=== PATIENT | male | born 1945 | race Caucasian/White ===

== ENCOUNTER → 2017-10-07 | Outpatient (CLI) | payer MEDICARE, OTHER ==
[~2017-10-07] MED LIST: ACET-822 PO; ASPI-183 PO; ASPI81 PO; CALCTAB33 PO; CARV12.5 PO; CLOP75 PO; CORE25TA PO; FENO134C PO; FENO50TA PO; FURO40TA PO; KLOR20TA3 PO; LASI20TA PO; LECIGRA PO; LOSA50TA PO; LYSI1000 P-ARTICULR; MAGN400T2 PO; MULT-65 PO; NALT50TA3 PO; OXYC1CAP PO; POTA-243 PO; RAMI5CAP7 PO; ROSU40 PO; TEMA15CA PO; TEST200I12 IM; VITA-141 PO; VITA400C70 PO; ZOCO80TA PO; [UNRECOGNIZED DRUG - CODE] PO; lecithin
[2017-10-07 11:43] LABS: AUTOMATED NEUTROPHIL # 3.7 TH/MM3 (1.8-7.7); BASOPHIL % 0.6 % (0.0-2.0); EOSINOPHIL # 0.8 TH/MM3 (0-0.4); EOSINOPHIL % 10.1 % (0.0-4.0); HEMATOCRIT 39.9 % (39.0-51.0); HEMOGLOBIN 13.5 GM/DL (13.0-17.0); LYMPH % 31.3 % (9.0-44.0); LYMPHOCYTE # 2.5 TH/MM3 (1.0-4.8); MEAN CORPUSCULAR HEMOGLOBIN 31.4 PG (27.0-34.0); MEAN CORPUSCULAR HGB CONC 33.8 % (32.0-36.0); MEAN PLATELET VOLUME 9.3 FL (7.0-11.0); MONO % 10.7 % (0.0-8.0); MONOCYTE # 0.8 TH/MM3 (0-0.9); NEUT % 47.3 % (16.0-70.0); PLATELET COUNT 201 TH/MM3 (150-450); RED BLOOD COUNT 4.29 MIL/MM3 (4.50-5.90); RED CELL DISTRIBUTION WIDTH 13.9 % (11.6-17.2); WHITE BLOOD COUNT 7.9 TH/MM3 (4.0-11.0)
[2017-10-07 11:43] LABS: BILIRUBIN, URINE NEG (NEG); BLOOD, URINE NEG (NEG); GLUCOSE,URINE NEG (NEG); HYALINE CAST, URINE 28 /lpf (RARE); KETONE, URINE NEG (NEG); MUCUS URINE FEW /lpf (OCC); NITRITE,URINE NEG (NEG); SQUAMOUS EPITHELIAL CELL URINE <1 /hpf (0-5); URINE COLOR YELLOW (YELLW/STRAW); URINE LEUKOCYTE ESTERASE NEG (NEG)
[2017-10-07 11:54] LABS: INTERNATIONAL NORMALIZED RATIO 1.1 RATIO; PROTHROMBIN TIME - PATIENT 10.8 SEC (9.8-11.6)
--- NOTE | 2017-10-07 11:56 | RADRPT ---
EXAM DATE/TIME: 10/07/2017 11:43 [place] COMPARISON: No previous studies available for comparison. INDICATIONS : Evaluate for Pneumonia, Pneumothorax, and communicable diseases. Pre-op Endovascular Aneurysm repair. MEDICAL HISTORY : None. SURGICAL HISTORY : CABG. Tonsillectomy. Triple bypass in 2006. ENCOUNTER: Initial ACUITY: 1 day PAIN SCORE: 0/10 LOCATION: Bilateral chest FINDINGS: There is evidence of prior median sternotomy CABG with borderline compensated cardiomegaly and athero sclerotic changes of the aorta. Vascularity is distinct. There is no consolidating infiltrate. There is a 5 or 6 mm faint rounded soft tissue density in the right lung base laterally near the costophren ic angle on PA view. Pulmonary nodule not excludable. CONCLUSION: Prior median sternotomy CABG with compensated atherosclerotic cardiovascular disease 5 or 6 mm rounded soft tissue density PA view only left base and costophrenic angle. Pulmonary nodule to be excluded. This could be performed with CT scan of the chest Travon De La Rosa MD on October 07, 2017 at 11:52 Board Certified Radiologist. This report was verified electronically.
[2017-10-07 12:15] LABS: BICARBONATE 27.7 MEQ/L (21.0-32.0); CALCIUM 8.6 MG/DL (8.5-10.1); CREATININE 1.29 MG/DL (0.60-1.30)
--- NOTE | 2017-10-08 00:12 | EKG ---
Date Performed: 10/07/2017 Time Performed: 10:55:14 PTAGE: 72 years EKG: Sinus bradycardia. Anterolateral T wave changes are nonspecific Borderline ECG PREVIOUS TRACING : 04/30/2008 11.46 Since the prior tracing, there has been no significant pineda DOCTOR: Ramos Padilla Interpretating Date/Time 10/08/2017 00:10:34
== END ==
LOC: CPRE 10:33
PROVIDERS: ATTEND Surgery
DX: Z01.812 Encounter for preprocedural laboratory examination (principal); Z01.810 Encounter for preprocedural cardiovascular examination; Z01.811 Encounter for preprocedural respiratory examination; I71.4 Abdominal aortic aneurysm, without rupture
CPT/HCPCS: 36415; 71046; 80048; 81001; 85025; 85610; 85730; 93005

== ENCOUNTER 2017-10-13 06:50 | Inpatient (IN) | payer MEDICARE, OTHER ==
[~2017-10-13] VITALS: Ht 177.8 cm; Wt 112.0 kg
[2017-10-13] VITALS (8 sets, daily range): BP systolic 132–140; BP diastolic 63–64; PULSE 72–83; RESP 17–18; TEMP 98.2–98.4; O2SAT 94–95
[~2017-10-13 06:50] MED LIST changes: -ACET-822 PO; -ASPI81 PO; -CARV12.5 PO; -CLOP75 PO; -FENO50TA PO; -LASI20TA PO; -LECIGRA PO; -OXYC1CAP PO; -POTA-243 PO; -RAMI5CAP7 PO; -TEMA15CA PO; -VITA400C70 PO; -ZOCO80TA PO; -lecithin
[2017-10-13] MEDS ORDERED: SODIUM CHLORID 0.9% 500 ML IV PRN (07:15)
[2017-10-13] MEDS ORDERED: CHLORHEXIDINE GLUCONATE 2 % 1 PACK (2 CLOTHS) TOPICAL PRN (07:15)
[2017-10-13] MEDS ORDERED: POVIDONE IODINE 5% (ANTISEPSIS KIT) 4 APPLICATIONS EACH NARE PRN (07:15)
[2017-10-13] MEDS ORDERED: METOPROLOL TARTRATE 25 MG TAB PO PRN (07:15)
[2017-10-13] MEDS ORDERED: LACTATED RINGER'S 1000 ML IV PRN (07:15)
[2017-10-13] MEDS ORDERED: TEMA15CA PO (07:58)
[2017-10-13] MEDS ORDERED: ACET-822 PO (07:58)
[2017-10-13] MEDS ORDERED: PROTAMINE SULFATE 50 MG/5 ML VIAL ONE ×2 (08:00→10:09)
[2017-10-13] MEDS ORDERED: THROMBIN (TOPICAL) 20,000 UNIT SPRAY KIT ONE (08:01)
[2017-10-13] MEDS ORDERED: BUPIVACAINE HCL PF 0.5% 30 ML VIAL ONE (08:01)
[2017-10-13] MEDS ORDERED: HEPARIN SODIUM - IV 10,000 UNITS/10 ML VIAL ONE ×2 (08:01→10:09)
[2017-10-13] MEDS ORDERED: ceFAZolin 2 GM PREMIX 50 ML ONE (08:02)
[2017-10-13] MEDS ORDERED: HEPARIN-NS/PF INJ 500 ML ONE (08:02)
--- NOTE | 2017-10-13 08:38 | PD.VS.PN ---
Pre-operative Note Pre-operative diagnosis: AAA Planned procedure: EVAR Interval History: Pt has been feeling well, no changes in health. Ready for surgery. Blood: none needed Orders: NPO Ancef 2g IV OCTOR Post-operative destination: PACU Operative site marked: Yes Consent: Informed consent has been obtained from Endy Guerrero Jr. I have explained the procedure in detail and discussed the risks, benefits, and potential complications. All questions have been answered. Patient contact information: [phone] () Naman Starkey MD Oct 13, 2017 08:38
[2017-10-13] MEDS ORDERED: IOHEXOL 300 MG/ML 100 ML BTL (for Rad CT) OTHER ONE (09:57)
[2017-10-13] MEDS ORDERED: ACETAMINOPHEN 1000 MG/100 ML 100 ML IV ONE (10:19)
[2017-10-13] MEDS ORDERED: SUGAMMADEX SODIUM 200 MG/2 ML VIAL IV PUSH ONE (11:02)
--- NOTE | 2017-10-13 11:18 | HHI.PR ---
cc: Loan Lujan MD Immediate Post Op Note Procedure Date: Oct 13, 2017 Pre Op Diagnosis: AAA Post Op Diagnosis: AAA Surgeon: Naman Starkey Flower Cutter(s): none Procedure: EVAR with 2 docking limbs Findings: small endoleak at end of case successful EVAR and B Percutaneous access Complications: none Specimen(s) removed: none Estimated blood loss: 50mL Anesthesia: General Drains: None Fluids: 1100mL IVF Urinary Output (mLs): 275 Patient to: PACU Patient Condition: Good Implant/Devices: SEE IMPLANT LOG (if applicable) Date/Time of Procedure: SEE SURGICAL CARE RECORD Naman Starkey MD Oct 13, 2017 11:18
[2017-10-13] MEDS ORDERED: MAGNESIUM HYDROXIDE SUSP 30 ML CUP PO PRN (11:30)
[2017-10-13] MEDS ORDERED: TEMAZEPAM 15 MG CAP PO PRN (11:30)
[2017-10-13] MEDS ORDERED: LACTULOSE SYRUP 20 GM/30 ML CUP PO PRN (11:30)
[2017-10-13] MEDS ORDERED: BISACODYL 10 MG SUPP RECTAL PRN (11:30)
[2017-10-13] MEDS ORDERED: SENNOSIDES 8.6 MG TAB PO PRN (11:30)
[2017-10-13] MEDS ORDERED: HYDROmorphone HCL 2 MG TAB PO PRN (11:30)
[2017-10-13] MEDS ORDERED: *RESP: ALBUTEROL 2.5 MG/3 ML NEB (PRN) PERIprocedural Use ONLY NEB ONE (11:56)
[2017-10-13] MEDS ORDERED: DO NOT ADM ANY ANTICOAGULANT DRUGS PRN (12:15)
[2017-10-13] MEDS: CARVEDILOL 12.5 MG TAB PO SCH (21:35)
[2017-10-13] MEDS: DOCUSATE SODIUM 50 MG/SENNA 8.6 MG TAB PO SCH (21:35)
[2017-10-13] MEDS: FAMOTIDINE 20 MG TAB PO SCH (21:35)
[2017-10-14] VITALS (8 sets, daily range): BP systolic 143–158; BP diastolic 67–68; PULSE 69–80; RESP 16–18; TEMP 98.3–98.4; O2SAT 95–97
[2017-10-14 04:21] LABS: HEMATOCRIT 36.8 % (39.0-51.0); HEMOGLOBIN 12.2 GM/DL (13.0-17.0); MEAN CELL VOLUME 92.1 FL (80.0-100.0); MEAN CORPUSCULAR HEMOGLOBIN 30.4 PG (27.0-34.0); MEAN PLATELET VOLUME 8.4 FL (7.0-11.0); PLATELET COUNT 205 TH/MM3 (150-450); WHITE BLOOD COUNT 15.8 TH/MM3 (4.0-11.0)
[2017-10-14 04:47] LABS: BICARBONATE 26.3 MEQ/L (21.0-32.0); CALCIUM 8.4 MG/DL (8.5-10.1); CREATININE 1.18 MG/DL (0.60-1.30)
--- NOTE | 2017-10-14 07:08 | PD.VS.PN ---
Subjective POD #: 1 Procedure(s): EVAR with B RETAIL SUPPORT SPECIALIST Perclose Subjective/Hospital Course doing well, pain controlled Morel just came out Objective Vitals/I&O Date Time Temp Pulse Resp B/P (MAP) Pulse Ox O2 Delivery O2 Flow Rate FiO2 10/14/17 06:24 74 10/14/17 05:17 69 10/14/17 04:11 72 10/14/17 03:25 77 10/14/17 03:25 98.3 75 16 143/67 (92) 97 10/14/17 02:26 78 10/14/17 01:17 78 10/14/17 00:25 75 10/13/17 23:32 75 10/13/17 23:15 98.2 74 17 140/63 (88) 94 10/13/17 22:00 76 10/13/17 21:15 81 10/13/17 20:35 76 10/13/17 19:30 98.4 79 18 132/64 (86) 95 10/13/17 19:20 83 10/13/17 15:00 72 10/13/17 12:45 71 15 139/65 (89) 96 Room Air 10/13/17 12:30 68 14 127/60 (82) 96 Room Air 10/13/17 12:15 68 16 122/61 (81) 98 Nasal Cannula 2 10/13/17 12:00 71 17 130/66 (87) 97 Nasal Cannula 2 10/13/17 11:45 69 20 126/64 (84) 97 Nasal Cannula 2 10/13/17 11:31 97.5 75 20 132/77 (95) 95 Nasal Cannula 2 10/13/17 08:07 98.3 78 20 100/46 (64) 94 10/14/17 10/14/17 10/14/17 07:00 15:00 23:00 Intake Total 450 ml Output Total 480 ml Balance -30 ml Exam: Resting comfortably Feeling well Groins soft and no hematomas feet warm Laboratory Laboratory Tests Test 10/14/17 04:05 White Blood Count 15.8 Red Blood Count 4.00 Hemoglobin 12.2 Hematocrit 36.8 Mean Corpuscular Volume 92.1 Mean Corpuscular Hemoglobin 30.4 Mean Corpuscular Hemoglobin Concent 33.0 Red Cell Distribution Width 14.0 Platelet Count 205 Mean Platelet Volume 8.4 Blood Urea Nitrogen 15 Creatinine 1.18 Random Glucose 129 Calcium Level 8.4 Sodium Level 137 Potassium Level 4.0 Chloride Level 104 Carbon Dioxide Level 26.3 Anion Gap 7 Estimat Glomerular Filtration Rate 61 Assessment and Plan Plan POD#1 s/p EVAR Looks great 1. Await voiding 2. D/C later today Discharge Planning today if voids Naman Starkey MD Oct 14, 2017 07:08
[2017-10-14] MEDS: CARVEDILOL 12.5 MG TAB PO SCH (08:52)
[2017-10-14] MEDS ORDERED: OXYC1CAP PO (08:53)
[2017-10-14] MEDS: FAMOTIDINE 20 MG TAB PO SCH (08:53)
[2017-10-14] MEDS: DOCUSATE SODIUM 50 MG/SENNA 8.6 MG TAB PO SCH (08:55)
[2017-10-14] MEDS ORDERED: LOSARTAN 50 MG TAB PO SCH (09:00)
[2017-10-14] MEDS ORDERED: NALTREXONE HCL 50 MG TAB PO SCH (09:00)
[2017-10-14] MEDS ORDERED: ATORVASTATIN 80 MG TAB PO SCH (09:00)
[2017-10-14] MEDS ORDERED: CHROMIUM PO SCH (09:00)
[2017-10-14] MEDS ORDERED: LYSINE HCL 1000 MG P-ARTICULR SCH (09:00)
[2017-10-14] MEDS ORDERED: MULTIVITAMIN TAB PO SCH (09:00)
[2017-10-14] MEDS ORDERED: CALCIUM/VITAMIN D 250 MG/125 U TAB PO SCH (09:00)
[2017-10-14] MEDS ORDERED: MAGNESIUM OXIDE 400 MG TAB PO SCH (09:00)
[2017-10-14] MEDS ORDERED: VITAMIN E 400 UNIT CAP PO SCH (09:00)
[2017-10-14] MEDS ORDERED: POTASSIUM CHLORIDE 20 MEQ CONTROLLED RELEASE TAB PO SCH (09:00)
[2017-10-14] MEDS ORDERED: [UNRECOGNIZED DRUG - OTHER] PO SCH (09:00)
[2017-10-14] MEDS ORDERED: CINNAMON PO SCH (09:00)
[2017-10-14] MEDS ORDERED: ALPHA LIPOIC ACID PO SCH (09:00)
[2017-10-14] MEDS ORDERED: ASPIRIN 325 MG TAB PO SCH (09:00)
[2017-10-14] MEDS ORDERED: FUROSEMIDE 40 MG TAB PO SCH (09:00)
[2017-10-14] MEDS ORDERED: FENOFIBRATE 145 MG TAB PO SCH (09:00)
--- NOTE | 2017-10-14 09:50 | PD.VS.DC ---
Discharge Summary Admission Date: Oct 13, 2017 at 06:50 Discharge Date: Oct 14, 2017 Admission Diagnosis: (1) AAA (abdominal aortic aneurysm) without rupture Discharge Diagnosis: (1) History of repair of aneurysm of abdominal aorta using endovascular stent graft ICD Codes: Z95.828 - Presence of other vascular implants and grafts (2) AAA (abdominal aortic aneurysm) without rupture ICD Codes: I71.4 - Abdominal aortic aneurysm, without rupture Brief History from admission Mr. Guerrero was dx w/ an infrarenal AAA several months ago. Pt reported he has been doing well and is w/o any complaints. Pt denied SOB abdominal/back/chest pain. Pt w/ a Hx of an AAA that has increased in size from 4.4 cm to 5.3 cm in 6m Procedure(s): EVAR with B EARLY CHILDHOOD SERVICES COORDINATOR Perclose Significant Findings GENERAL: A&OX3,NAD,GCS15 SKIN: Warm and dry. NECK: Supple, trachea midline. No JVD or lymphadenopathy. CARDIOVASCULAR: Regular rate and rhythm without murmurs, gallops, or rubs. RESPIRATORY: Breath sounds equal bilaterally. No accessory muscle use. GASTROINTESTINAL: Abdomen soft, non-tender, nondistended. Bilat groins soft w/o hematoma or swelling MUSCULOSKELETAL: No cyanosis, or edema. LE warm w/ motor intact Laboratory Tests Test 10/14/17 04:05 White Blood Count 15.8 TH/MM3 (4.0-11.0) Red Blood Count 4.00 MIL/MM3 (4.50-5.90) Hemoglobin 12.2 GM/DL (13.0-17.0) Hematocrit 36.8 % (39.0-51.0) Random Glucose 129 MG/DL (74-106) Calcium Level 8.4 MG/DL (8.5-10.1) Estimat Glomerular Filtration Rate 61 ML/MIN (>89) Hospital Course: Mr. Guerrero was dx w/ an infrarenal AAA several months ago. Pt reported he has been doing well and is w/o any complaints. Pt denied SOB abdominal/back/chest pain. Pt w/ a Hx of an AAA that has increased in size from 4.4 cm to 5.3 cm in 6m Pt S/P EVAR POD 1 Doing well Denied Abdominal/back pain Bilat groins soft w/o hematoma or swelling Pt clear for d/c Arranged f/u in 1M with a surveillance CTA A/P post op EVAR Allergies Coded Allergies Type Severity Reaction Last Updated Verified clopidogrel Allergy Severe HANDS AND FEET RED 10/13/17 Yes 10/12/17 10/12/17 10/13/17 10/13/17 10/14/17 10/14/17 06:00 18:00 06:00 18:00 06:00 18:00 Intake Total 1100 ml 450 ml 700 ml Output Total 435 ml 480 ml 300 ml Balance 665 ml -30 ml 400 ml Intake Oral 450 ml 700 ml Other 1100 ml Output Urine Total 385 ml 480 ml 300 ml Estimated Blood Loss 50 ml # Bowel Movements 0 Laboratory Tests Test 10/14/17 04:05 White Blood Count 15.8 TH/MM3 Red Blood Count 4.00 MIL/MM3 Hemoglobin 12.2 GM/DL Hematocrit 36.8 % Mean Corpuscular Volume 92.1 FL Mean Corpuscular Hemoglobin 30.4 PG Mean Corpuscular Hemoglobin Concent 33.0 % Red Cell Distribution Width 14.0 % Platelet Count 205 TH/MM3 Mean Platelet Volume 8.4 FL Blood Urea Nitrogen 15 MG/DL Creatinine 1.18 MG/DL Random Glucose 129 MG/DL Calcium Level 8.4 MG/DL Sodium Level 137 MEQ/L Potassium Level 4.0 MEQ/L Chloride Level 104 MEQ/L Carbon Dioxide Level 26.3 MEQ/L Anion Gap 7 MEQ/L Estimat Glomerular Filtration Rate 61 ML/MIN Orders Procedure Category Date Status Time Type And Screen BBK 10/13/17 Complete 07:06 Lactated Ringer's MED 10/13/17 Complete 1000 Ml Inj (Lr 1000 M 07:15 Sodium Chlorid 0.9% MED 10/13/17 Complete 500 Ml Inj (Ns 500 M 07:15 Metoprolol Tartrate MED 10/13/17 Complete (Lopressor) 07:15 Povidone Iod 5% MED 10/13/17 Complete Antisepsis Kit 07:15 Chlorhexidine 2% MED 10/13/17 Complete Cloth (Chlorhexidine 07:15 Protamine Sulfate Inj MED 10/13/17 Complete (Protamine Sulfate 08:00 Heparin Inj (Heparin MED 10/13/17 Complete Inj) 08:01 Bupivacaine Pf 0.5% MED 10/13/17 Complete Inj (Marcaine Pf 0.5 08:01 Thrombin Top [place] MED 10/13/17 Complete (Thrombin Top [place]) 08:01 Heparin-Ns/Pf Inj MED 10/13/17 Complete (Heparin-Ns/Pf Inj) 08:02 Cefazolin 2 Gm Premix MED 10/13/17 Complete (Ancef 2 Gm Premix 08:02 Endovascular Cath CATH 10/13/17 Logged Urinary Catheter MARSHAL 10/13/17 Complete Management 10:07 Protamine Sulfate Inj MED 10/13/17 Complete (Protamine Sulfate 10:09 Heparin Inj (Heparin MED 10/13/17 Complete Inj) 10:09 Acetaminophen 1000 MED 10/13/17 Complete Mg/100 Ml (Ofirmev 10 10:19 Sugammadex Inj MED 10/13/17 Complete ([place] Inj) 11:02 Iohexol 300 Inj (Rad MED 10/13/[address]) (Omnipaque 300 09:57 Admit To Inpatient ADMITTING 10/13/17 Transmitted Code Status CODE 10/13/17 Transmitted 11:18 Vital Signs (Adult) MARSHAL 10/13/17 Complete 11:18 Mirror Painter / MARSHAL 10/13/17 Complete Telemetry 11:18 Activity Oob Ad Glory MARSHAL 10/14/17 Complete 07:00 Activity Bed Rest MARSHAL 10/13/17 Complete 11:18 Precautions MARSHAL 10/13/17 Complete 11:18 Diet Heart Healthy DIET 10/13/17 Complete Lunch Basic Metabolic Panel LAB 10/14/17 Complete (Bmp) 06:00 Cbc No Diff, Includes LAB 10/14/17 Complete Plts 06:00 Aspirin (Aspirin) MED 10/14/17 Complete 09:00 Famotidine (Pepcid) MED 10/13/17 Complete 21:00 Oxycodone (Roxicodone) MED 10/13/17 Complete 11:30 Hydromorphone MED 10/13/17 Complete (Dilaudid) 11:30 Scd Bilateral/Knee MARSHAL 10/13/17 Complete High 11:18 Docusate Sodium-Senna MED 10/13/17 Complete (Katlin-Colace) 21:00 Magnesium Hydroxide MED 10/13/17 Complete Liq (Milk Of Magnesi 11:30 Sennosides (Senokot) MED 10/13/17 Complete 11:30 Bisacodyl Supp MED 10/13/17 Complete (Dulcolax Supp) 11:30 Lactulose Liq MED 10/13/17 Complete (Lactulose Liq) 11:30 Inpatient ADMITTING 10/13/17 Transmitted Certification Remove Urinary MARSHAL 10/14/17 Complete Catheter 07:00 Carvedilol (Coreg) MED 10/13/17 Complete 21:00 Furosemide (Lasix) MED 10/14/17 Complete 09:00 Losartan (Cozaar) MED 10/14/17 Complete 09:00 Magnesium Oxide MED 10/14/17 Complete (Mag-Ox) 09:00 Naltrexone Hcl (Revia) MED 10/14/17 Complete 09:00 Potassium Chloride MED 10/14/17 Complete (Kcl) 09:00 Temazepam (Restoril) MED 10/13/17 Complete 11:30 (Nf) Alpha Lipoic MED 10/14/17 Complete Lhnj-Wdpheffw-Qpdcgaaj 09:00 Calcium-Vit D 250-125 MED 10/14/17 Complete Mg (Oscal-D 250-12 09:00 Fenofibrate (Tricor) MED 10/14/17 Complete 09:00 (Nf) Lysine Hcl MED 10/14/17 Complete (Lysine) 09:00 Multivitamin MED 10/14/17 Complete (Theragran) 09:00 Atorvastatin (Lipitor) MED 10/14/17 Complete 09:00 Vitamin E (Vitamin E) MED 10/14/17 Complete 09:00 Enoxaparin Inj MED 10/14/17 Complete (Lovenox Inj) 11:00 *Albuterol Neb MED 10/13/17 Complete (*Albuterol Neb 11:56 [facility] MED 10/13/17 Complete Information 12:15 Class Iv Pacu Ea 30 [facility] 10/13/17 Complete MIN General/Pacu [facility] 10/13/17 Complete Post Anesthesia Oxygen [facility] 10/13/17 Complete Post Anesthesia [facility] 10/13/17 Complete Aerosol Am Admit Pre Op Care [facility] 10/13/17 Complete Haider Thakkar Med [facility] 10/13/17 Logged EA 17:29 Attending Discharge DISCHARGE 10/14/17 Transmitted Order Vital Signs Date Time Temp Pulse Resp B/P (MAP) Pulse Ox O2 Delivery O2 Flow Rate FiO2 10/14/17 08:00 80 10/14/17 08:00 98.4 79 18 158/68 (98) 95 10/14/17 07:16 18 10/14/17 06:24 74 10/14/17 05:17 69 10/14/17 04:11 72 10/14/17 03:25 77 10/14/17 03:25 98.3 75 16 143/67 (92) 97 10/14/17 02:26 78 10/14/17 01:17 78 10/14/17 00:25 75 10/13/17 23:32 75 10/13/17 23:15 98.2 74 17 140/63 (88) 94 10/13/17 22:00 76 10/13/17 21:15 81 10/13/17 20:35 76 10/13/17 19:30 98.4 79 18 132/64 (86) 95 10/13/17 19:20 83 10/13/17 15:00 72 10/13/17 12:45 71 15 139/65 (89) 96 Room Air 10/13/17 12:30 68 14 127/60 (82) 96 Room Air 10/13/17 12:15 68 16 122/61 (81) 98 Nasal Cannula 2 10/13/17 12:00 71 17 130/66 (87) 97 Nasal Cannula 2 10/13/17 11:45 69 20 126/64 (84) 97 Nasal Cannula 2 10/13/17 11:31 97.5 75 20 132/77 (95) 95 Nasal Cannula 2 10/13/17 08:07 98.3 78 20 100/46 (64) 94 Discharge Condition: Good Discharge Disposition: Discharge Home Discharge Instructions: Activities as tolerated Maintain a heart healthy diet May shower then pat dry incisions to bilat groins NO tub baths Your were prescribed a narcotic pain medication that may causes constipation- Take with an over the counter stool softener NO driving while taking your prescribed pain medication as it may cause dizziness Call to report any redness, drainage or swelling (Bilateral groin regions) Any questions or concerns: Call [facility] at [facility] [phone] Fiona George Oct 14, 2017 09:50
[2017-10-14] MEDS ORDERED: ENOXAPARIN SODIUM 40 MG/0.4 ML SYRINGE SQ SCH (11:00)
--- NOTE | 2017-10-14 11:49 | MP ---
cc: JUDITH LIZAMA MD DATE OF SURGERY: 10/14/2017 PREOPERATIVE DIAGNOSIS: Abdominal aortic aneurysm POSTOPERATIVE DIAGNOSIS Abdominal aortic aneurysm PROCEDURE 1. Endovascular exclusion of abdominal aortic aneurysm. Using a bifurcated tri modular device in an aortobiiliac configuration 2. Right common femoral artery Perclose 3. Left common femoral artery Perclose. ANESTHESIA labor relations analyst SURGEON None. INDICATIONS Mr. Garrido is a 72-year-old gentleman with a history of abdominal aortic aneurysm that is grown to 9 mm over the past year of surveillance, it now measures 5.3 cm. He was offered endovascular exclusion. DESCRIPTION OF DESCRIPTION After informed consent was obtained from patient, the patient is taken off to the operating room and placed supine on the operating room table. Appropriate time-out was taken to ensure patient has any problems following the procedure, the administration of 2 grams of Ancef was initiated prior to skin incision, this will be discontinued after single preoperative dose. Everyone in the room agreed. A time procedure proceeded. He was prepped from his nipples to his knees. A 21 gauge micropuncture needle was used to access both common femoral artery was exchanged using Seldinger technique with micropuncture sheath, which to a 0.035 storq wire was advanced and a micropuncture sheath was changed for a 5-Lithuanian sheath which was used to dilate skin in subcutaneous tracked the arteriotomy. Two Perclose Pro [place] sutures were inserted and tagged. These be used later. A short 8-Lithuanian 10 cm sheath was placed on the right-hand side and 8-Lithuanian 25 cm sheath was placed on left. The patient was systemically heparinized and throughout the remainder of the case the was Greater than 250, the trocar was advanced to the proximal descending thoracic aorta and over the right hand storq wire a catheter was placed to exchange the storq for a Lunderquist wire. Left hand storq wire a marker flush straight catheter was advanced. The 8 Lithuanian, 10 cm sheath was removed from the right-hand groin and Bowen dilators was used to dilate the skin, subcutaneous and arteriotomy. The main device which was a [employer] Endurance 25 x 14 x 103 was advanced over right-hand side and oriented appropriately. Interval angiography interval angiography showed the location renal arteries and the main device was deployed down to the contralateral gate. The top of the bare metal spring was then deployed without difficulty. Through the left-hand flush catheter a road runner wire was then advanced and the flush catheter exchanged for a Cobra catheter followed by vertebral and a DCF catheter. Ultimately a DCF catheter Glidewire were used to navigate into the contralateral gate and this was confirmed angiographically. A Lunderquist wire was passed off the left-hand side and the DCF catheter was removed and a marker catheter was then advanced. The contralateral limb was then selected and the catheter was removed. The 8-Lithuanian 25 cm sheath was removed. Bowen dilators she has dilate skin, subcutaneous traction arteriotomy and the contralateral limb which was a endurance 16 x 20 x 156 limb was advanced and deployed without difficulty. The deployment system was removed and a 14 a 12-Lithuanian sheath was introduced and to provide hemostasis. Remained main device was deployed from the right-hand side the delivery system was captured and the delivery system was removed and a 14-Lithuanian sheath was then inserted over the Lunderquist wire on the right-hand side by hemostasis. A marker catheter was placed over the Lunderquist wire and the Ipsilateral limb which was a 16 x 20 x 156 was introduced and deployed without difficulty through the 16-Lithuanian sheath. A Reliant balloon was used glide and the below the proximal distal aspects as well as old junctions and the completion angiogram showed excellent also a sluggish endoleak. Wire catheter and sheath were removed over storq wire and the Perclose were tied down. Hemostasis was achieved in groin. The Doppler signal in the feet. The heparin reversed with protamine. The wounds were made hemostatic and the 4-0 Monocryl suture was placed in both groin puncture sites. There are no complications. I was present and scrubbed for entire procedure. MD JOSÉ Olivares/jah /4:41 PM /11:18 AM
== END 2017-10-14 09:40 | disposition home or self-care (01) | DRG 269 ==
LOC: HSDI 06:50 → HCPC 13:34
PROVIDERS: ADMIT Surgery; ATTEND Surgery
PROC: [UNRECOGNIZED PROCEDURE] (principal; 2017-10-13 09:00)
DX: I71.4 Abdominal aortic aneurysm, without rupture (principal); J44.9 Chronic obstructive pulmonary disease, unspecified; I12.9 Hypertensive chronic kidney disease with stage 1 through stage 4 chronic kidney disease, or unspecified chronic kidney disease; N18.9 Chronic kidney disease, unspecified; I25.10 Atherosclerotic heart disease of native coronary artery without angina pectoris; Z95.1 Presence of aortocoronary bypass graft; E78.5 Hyperlipidemia, unspecified; E66.9 Obesity, unspecified; Z68.35 Body mass index [BMI] 35.0-35.9, adult; M19.90 Unspecified osteoarthritis, unspecified site; Z87.891 Personal history of nicotine dependence
CPT/HCPCS: 80048; 85027; 86850; 86900; 86901; 94664; J0131; J0690; J1644; J2720; J7120; J7613; Q9967